=== PATIENT | male | born 1945 | race Two or more races ===

== ENCOUNTER 2023-02-13 20:20 | Emergency (ER) | payer OTHER ==
[~2023-02-13] VITALS: Ht 165.1 cm; Wt 81.6 kg
[~2023-02-13 20:20] MED LIST: LOSARTAN POTASS50 MG
[2023-02-13] MEDS ORDERED: LEVOTHYROXINE25 MCG (20:53)
[2023-02-13] MEDS ORDERED: SIMVASTATIN5 MG (20:55)
[2023-02-13] MEDS ORDERED: SYNTHROID150 MCG (20:55)
[2023-02-13 21:35] LABS: HEMATOCRIT 37.1 % (39.0-48.0); HEMOGLOBIN 12.6 g/dL (13-16.00); MEAN CELL VOLUME 91.4 fL (80.0-100.00); MEAN CORPUSCULAR HGB CONC 33.9 g/dl (32.0-36.0); PLATELET COUNT 173 K/uL (150-450); RED BLOOD COUNT 4.06 M/uL (4.00-6.00); RED CELL DISTRIBUTION WIDTH 13.6 % (11.5-14.5)
== END 2023-02-13 22:41 | disposition home or self-care (01) ==
LOC: ER 20:20
PROVIDERS: General Practice
DX: J10.1 Influenza due to other identified influenza virus with other respiratory manifestations (principal); R05.9 Cough, unspecified
CPT/HCPCS: 36415; 99284; J0696; J1885

== ENCOUNTER 2023-12-26 19:39 | Emergency (ER) | payer OTHER ==
[~2023-12-26] VITALS: Ht 167.6 cm; Wt 78.9 kg
[~2023-12-26 19:39] MED LIST changes: +LEVOTHYROXINE25 MCG; +SIMVASTATIN5 MG; +SYNTHROID150 MCG
[2023-12-26] MEDS ORDERED: TURMERIC 500 M1 EACH (20:07)
[2023-12-26] MEDS ORDERED: UROXATRAL10 MG (20:07)
[2023-12-26] MEDS ORDERED: ORPHENADRINE CITRATE 30 MG/ML AMPUL ONE (20:26)
[2023-12-26] MEDS ORDERED: KETOROLAC TROMETHAMINE 60 MG VIAL IM ONE ×2 (20:27→20:30)
[2023-12-26] MEDS ORDERED: ORPHENADRINE CITRATE 30 MG/ML AMPUL IM ONE (20:30)
== END 2023-12-26 21:21 | disposition home or self-care (01) ==
LOC: ER 19:40
DX: R07.89 Other chest pain (principal); R10.9 Unspecified abdominal pain; I10 Essential (primary) hypertension; E03.8 Other specified hypothyroidism
CPT/HCPCS: 96372; 99282; J1885; J2360